=== PATIENT | male | born 1955 | race Caucasian/White ===

== ENCOUNTER 2023-01-19 23:23 | Emergency (ER) | payer OTHER, BC ==
--- OUTSIDE RECORDS SUMMARY | 2023-01-19 23:29 | XMS REPORT | Continuity of Care Document ---
:1955 Author Organization [facility] t Address [address] [place] [address] Care Team Providers Name Role Phone No MD, Pcp Primary Care Physician Unavailable JESÚS MARCELO Attending Clinician Unavailable Saravanan Jorge Attending Clinician Jesús Marcelo Attending Clinician Payers Payer Name Policy Type Policy Number Effective Date Expiration Date Lori KUMAR O [id number] 2018 00:00:00 Problems Condition Condition Condition Status Onset Resolution Last Treating Co mments Source Name Details Category Date Date Treatment Clinician Date I70.209 I70.209 Diagnosis Active 2022-11-29 Memoria I73.9 I73.9 8-11 10:15:00 l I77.9 I77.9 00:00: Mcdaniel Active 00 11/12/[address] [facility] I77.9 I77.9 Diagnosis Active 2022-11-15 Mem oria I73.9 I73.9 10-14 11:12:00 l Active 00:00: Shakir 10/14/[address] [facility] 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 Active [place] (periphera (periphera 10-08 He alth l arterial l arterial 00:00: occlusive occlusive 00 disease) disease) Paresthesi Paresthes Problem Active 2022-12-27 Memoria a ia 12:19:15 l (finding) (finding) Herm julian Active Problem 12/27/2022 [facility] Peripheral Periphera Problem Active 2022-12-27 Memoria nerve l nerve 12:19:15 l disease disease Shakir (disorder) (disorder) Active Problem 12/27/2022 [facility] Foot pain Foot pain Problem Active 2022-12-27 Memoria (finding) (finding) 12:19:15 l Active Shakir Problem 12/27/2022 [facility] [place] Lumbar Lumbar Problem Active 2022-12-27 [facility] radiculopa radiculopa 12:19:15 l thy thy Shakir (disorder) (disorder) Active Problem 12/27/2022 [facility] [place] Intermitte Intermitt Problem Active 2022-12-27 Memoria nt ent 12:19:15 l claudicati claudicati He rmann on on (disorder) (disorder) Active Problem 12/27/2022 [facility] Neurology [place] Peripheral Periphera Problem Active 2022-12-27 Memoria vascular l vascular 12:19:15 l disease disease Shakir (disorder) (disorder) Active Problem 12/27/2022 [facility] [place] Hyperlipid Hyperlipi Problem Active 2022-12-27 Memoria emia demia 12:19:15 l (disorder) (disorder) He rmann Active Problem 12/27/2022 [facility] [place] Anxiety Anxiety Problem Active 2022-12-27 Me morilamonte (finding) (finding) 12:19:15 l Active Shakir Problem 12/27/2022 [facility] 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 Active Problem 12/27/2022 [facility] M79.671 - M79.671 - Diagnosis Active 2022-09-09 Memoria PAIN IN PAIN IN 11:25:00 l RIGHT FOOT RIGHT FOOT He rmann Active OPID [place] Allergies, Adverse Reactions, Alerts Allergy Allergy Status Severity Reaction(s) Onset Inactive Treating Comm ents Source Name Type Date Date Clinician No Known No Known Active Memori a Medicati Medicati l on on Shakir Allergie Allergie s s Social History Social Habit Start Date Stop Date Quantity Comments Source History of tobacco Cigarette [facility] Sexual orientation [facility] History of Social 2022-12-14 2022-12-14 [facility] function 00:00:00 00:00:00 Tobacco use and 2022-10-08 2022-10-08 Smokeless tobacco [facility] exposure 00:00:00 00:00:00 non-user Sex Ass[birth year] At [birth year] [facility] 00:00:00 00:00:00 Smoking Status Start Date Stop Date Source Tobacco smoking status 2022-11-29 16:34:48 Memor iapete Mcdaniel Medications Ordered Filled Start Stop Current Ordering Indication Dosage Frequency Signature Comments Components Source Medication Medication Date Date Medication? Clinician (SIG) Name Name HYDROcodone Yes 1 tab, PO, Memoria -ibuprofen 8-28 Q4H, PRN l 7.5 mg-200 23:16: for pain, He rmann mg oral 00 X 5 day, # tablet 30 tab, 0 Refill(s), Pharmacy: [facility] #[id number], 172.72, cm, 11/22/22 13:27:00 CDT, Height, 68.8, kg, 11/22/22 13:27:00 CDT, Weight atorvastati Yes 20 mg = 1 M emoria n 20 mg 8-21 tab, PO, l oral tablet 18:52: Bedtime, # Shakir 00 30 tab, 0 Refill(s) clopidogrel 0 Yes 75 mg = 1 M emoria 75 mg oral 8-21 tab, PO, l tablet 18:52: Daily, # Shakir 00 30 tab, 0 Refill(s) ALPRAZOLam 0 Yes 1 mg = 1 Mem oria 1 mg oral 8-21 tab, PO, l tablet 18:52: TID, PRN Mcdaniel 00 Anxiety, 0 Refill(s) Plavix 75 0 Yes 75 mg = 1 Mem oria mg oral 7-17 tab, PO, l tablet 18:53: Daily, # Shakir 00 90 tab, 3 Refill(s), Pharmacy: [facility] #[id number], 172.72, cm, 10/18/22 9:47:00 CDT, Height, 70.455, kg, 10/18/22 9:47:00 CDT, Weight aspirin 0 Yes 325 mg, Memoria 7-17 PO, Daily, l 15:20: 0 Shakir 00 Refill(s) Xanax 0 Yes See Memoria 7-17 Instructio l 14:48: ns, PRN Mcdaniel 00 Agitation, PO, 0 Refill(s) ASPIRIN 81 0 Yes Take by [place] PO 7-07 mouth. Health 16:13: 38 ASPIRIN 81 2022-0 Yes Take by UT PO 7-07 mouth. Health 16:13: 38 ASPIRIN 81 2022-0 Yes Take by UT PO 7-07 mouth. Health 16:13: 38 ASPIRIN 81 0 Yes Take by UT PO 7-07 mouth. Health 16:13: 38 ALPRAZolam 0 Yes UT (Xanax) 1 7-06 Health MG tablet 00:00: 00 ALPRAZolam 0 Yes UT (Xanax) 1 7-06 Health MG tablet 00:00: 00 ALPRAZolam 2022-0 Yes UT (Xanax) 1 7-06 Health MG tablet 00:00: 00 ALPRAZolam 2022-0 Yes UT (Xanax) 1 7-06 Health MG tablet 00:00: 00 Lipitor 20 Yes 20 mg = 1 Me moria mg oral 6-22 tab, PO, l tablet 14:37: Bedtime, # Heidi nn 00 30 tab, 2 Refill(s), [id number], 175.26, cm, 09/23/22 9:02:00 CDT, Height, 73.409, kg, 09/23/22 9:02:00 CDT, Weight imipramine Yes 10 mg = 1 Me moria 10 mg oral 2-09 tab, PO, l tablet 21:56: Bedtime, # Heidi nn 00 30 tab, 3 Refill(s), [id number], 73.182, kg, 05/13/22 15:44:00 [employer]ESS[employer]CE[employer], Weight duloxetine 2019-04 Yes 30 mg = 1 Me moria 30 MG 2-07 cap, PO, l Enteric 17:26: Daily, # Sundeep n Coated 00 90 cap, 1 Capsule Refill(s), [Cymbalta] Pharmacy: [facility] #[id number], 172.72, cm, 03/10/20 11:04:00 [employer]CE[employer], Height, 69.091, kg, 03/10/20 11:04:00 PROFESS[employer]CE[employer], Weight gabapentin No 300 mg = 1 M emoria 300 MG Oral 4-14 cap, PO, l Capsule 16:12: TID, 0 Shakir 00 Refill(s) Vital Signs Vital Name Observation Time Observation Value Comments Source Height 2022-12-24 14:56:00 5 [ft_i] [facility] Shakir Weight 2022-12-24 14:56:00 [facility] Mcdaniel BMI Calculated 2022-12-24 14:56:00 Memori al Mcdaniel Systolic (mm Hg) 2022-12-24 14:56:00 Juan rial Shakir Diastolic (mm Hg) 2022-12-24 14:56:00 Mem orial Mcdaniel Heart Rate 2022-12-24 14:56:00 [facility] Shakir Systolic (mm Hg) 2022-11-30 01:25:00 Juan rial Shakir Diastolic (mm Hg) 2022-11-30 01:25:00 Mem orial Shakir Heart Rate 2022-11-29 21:30:00 [facility] Mcdaniel Height 2022-11-22 18:27:00 5 [ft_i] [facility] Shakir Weight 2022-11-22 18:27:00 [facility] Mcdaniel BMI Calculated 2022-11-22 18:27:00 Memori al Mcdaniel Systolic (mm Hg) 2022-11-12 14:59:00 Juan rial Shakir Diastolic (mm Hg) 2022-11-12 14:59:00 Mem orial Shakir Heart Rate 2022-11-12 14:59:00 [facility] Mcdaniel Height 2022-11-12 14:59:00 5 [ft_i] [facility] Shakir Weight 2022-11-12 14:59:00 [facility] Mcdaniel BMI Calculated 2022-11-12 14:59:00 Memori al Shakir Systolic (mm Hg) 2022-10-18 21:00:00 Juan rial Mcdaniel Diastolic (mm Hg) 2022-10-18 21:00:00 Mem orial Mcdaniel Heart Rate 2022-10-18 15:42:00 [facility] Shakir Height 2022-10-18 14:47:00 5 [ft_i] [facility] Shakir Weight 2022-10-18 14:47:00 [facility] Mcdaniel BMI Calculated 2022-10-18 14:47:00 Memori al Mcdaniel Systolic (mm Hg) 2022-09-23 13:44:00 Juan rial Shakir Diastolic (mm Hg) 2022-09-23 13:44:00 Mem orial Shakir Heart Rate 2022-09-23 13:44:00 [facility] Mcdaniel Height 2022-09-23 13:44:00 5 [ft_i] [facility] Shakir Weight 2022-09-23 13:44:00 [facility] Shakir BMI Calculated 2022-09-23 13:44:00 Memori al Mcdaniel Systolic (mm Hg) 2022-08-31 20:45:00 Juan rial Mcdaniel Diastolic (mm Hg) 2022-08-31 20:45:00 Mem orial Mcdaniel Heart Rate 2022-08-31 20:45:00 [facility] Shakir Height 2022-08-31 20:45:00 5 [ft_i] [facility] Shakir Weight 2022-08-31 20:45:00 [facility] Mcdaniel BMI Calculated 2022-08-31 20:45:00 Memori al Shakir Systolic (mm Hg) 2022-08-27 18:43:00 Juan rial Mcdaniel Diastolic (mm Hg) 2022-08-27 18:43:00 Mem orial Mcdaniel Heart Rate 2022-08-27 18:43:00 [facility] Shakir Height 2022-08-27 18:43:00 5 [ft_i] [facility] Mcdaniel Weight 2022-08-27 18:43:00 [facility] Mcdaniel BMI Calculated 2022-08-27 18:43:00 Memori al Mcdaniel Systolic (mm Hg) 2022-05-13 21:22:00 Juan rial Mcdaniel Diastolic (mm Hg) 2022-05-13 21:22:00 Mem orial Shakir Heart Rate 2022-05-13 21:22:00 [facility] Mcdaniel Weight 2022-05-13 21:22:00 [facility] Shakir Systolic (mm Hg) 2020-03-10 17:04:00 Juan rial Mcdaniel Diastolic (mm Hg) 2020-03-10 17:04:00 Charley Videsann Heart Rate 2020-03-10 17:04:00 Niki Mcdaniel Respitory Rate 2020-03-10 17:04:00 Belen Sinclair Height 2020-03-10 17:04:00 172.72 cm Niki Schilling Weight 2020-03-10 17:04:00 Niki Videsann BMI Calculated 2020-03-10 17:04:00 Charleydoug crocker Shakir Procedures Procedure Date / Time Performed Performing Clinician [facility] e Cervical laminectomy [facility] rmann Stent [facility] Mcdaniel placement<sup>1</sup> Lower back surgery [facility] Herm julian Angioplasty of artery of [facility] l Shakir lower extremity Encounters Start End Encounter Admission Attending Care Care Encounter Source Date/Time Date/Time Type Type Clinicians Facility Department ID 2022-10-20 Outpatient [facility] [id number] [place] 13:09:09 [id number] [facility] 2022-10-14 Outpatient [facility] [id number] [place] 12:24:04 [id number] [facility] 2022-10-11 Outpatient [facility] [id number] [place] 08:06:19 [id number] [facility] 2022-10-08 Outpatient [facility] [id number] [place] 09:55:12 [id number] [facility] 2022-10-06 Outpatient [facility] [id number] [place] 14:41:02 [id number] [facility] 2022-09-28 Outpatient [facility] [id number] [place] 13:27:58 [id number] [facility] 2022-09-24 Outpatient [facility] [id number] [place] 07:24:47 [id number] [facility] 2022-09-22 Outpatient [facility] [id number] 09:50:35 [id number] [facility] 2022-09-21 Outpatient [facility] [id number] [place] 13:45:35 [id number] [facility] 2022-09-13 Outpatient [facility] [id number] [place] 14:42:16 [id number] [facility] 2023-03-15 2023-03-15 Outpatient REKHA REKHA [id number] Memoria 10:30:00 10:30:00 14 l Shakir 2023-01-18 2023-01-[address] [facility] [id number] 07:45:00 07:45:[address] [facility] [id number] Health [place] 1 [id number] 2023-01-10 2023-01-10 Outpatient [facility] [id number] [place] 10:30:00 12:13:53 Health 2023-01-10 2023-01-10 Outpatient [facility] [id number] [place] 10:00:00 12:13:29 [facility] 2022-12-24 2022-12-25 Outpatient MHIE MNA [id number] Memoria 14:45:00 04:59:59 Neurology 13 l Maribell Schilling 2022-12-24 2022-12-24 Outpatient AKIRA JorgeSCHER MHMISCHER [id number] 09:45:00 23:59:59 Saravanan 13 Ramon 2022-12-24 2022-12-24 Outpatient MHIE MHIE [id number] Memoria 09:45:00 09:45:00 13 pete Schilling 2022-12-14 2022-12-[address] [facility] [id number] [place] 10:45:00 10:45:00 Visit [facility] [id number] [facility] [place] 1 [id number] 2022-11-29 2022-11-30 Day MHIE [facility] [id number] Memoria 15:14:00 01:38:00 Surgery Mcdaniel 01 [facility] 2022-11-29 2022-11-29 Outpatient NICK Marcelo SE [id number] 10:14:00 20:38:00 Jesús Rodrick Asael 2022-11-12 2022-11-13 Outpatient MHIE MNA [id number] Memoria 15:15:00 04:59:59 Neurology 12 pete Schilling 2022-11-12 2022-11-12 Outpatient AKIRA JorgeSCHPRUDENCE MHMISCHER [id number] 10:15:00 23:59:59 Saravanan 12 Ramon 2022-11-12 2022-11-12 Outpatient MHIE MHIE [id number] Memoria 10:15:00 10:15:00 12 pete Schilling 2022-11-05 2022-11-05 Outpatient DAVIAN, [facility] [id number] [place] 10:45:00 10:45:00 [facility] 2022-11-02 2022-11-[address] [facility] [id number] [place] 11:15:00 13:02:16 Visit Jesús [facility] [id number] He alth [place] 1 [id number] 2022-10-18 2022-10-18 Day REKHA [facility] [id number] Memoria 14:17:00 21:50:00 Surgery Mcdaniel 00 l [facility] 2022-10-18 2022-10-[address] [facility] [id number] 09:17:00 16:50:00 Jesús Newsome Alvo 2022-10-18 2022-10-18 [facility] [id number] [place] 12:30:00 12:30:00 [facility] 2022-10-08 2022-10-08 Office Davian DENITA [id number] [place] 10:30:00 14:15:21 Visit Jesús [facility] [id number] H ealth MULTI [id number] [facility] [id number] [facility] 5 2022-09-23 2022-09-24 Outpatient MHIE MNA [id number] Memoria 14:00:00 04:59:59 Neurology 11 l Maribell Schilling 2022-09-23 2022-09-23 Outpatient FILEMON Jorge [id number] 09:00:00 23:59:59 Saravanan 11 Ramon 2022-09-23 2022-09-23 Outpatient MHIE IE [id number] Memoria 09:00:00 09:00:00 11 l Shakir 2022-09-09 2022-09-10 Outpt Diag MHREKHA [facility] [id number] Memoria 16:14:00 04:59:00 Services Outpatient 00 l [facility] Mcdaniel [place] 2022-09-09 2022-09-09 Outpatient BRIGITTE Jorge Anthony [id number] 11:14:00 23:59:00 Saravanan 00 Ramon 2022-08-31 2022-09-01 Outpatient MHIE MNA [id number] Memoria 20:45:00 04:59:59 Neurology 10 pete Schilling 2022-08-31 2022-08-31 Outpatient NADEEN JorgeMISCHER MHMISCHER [id number] 15:45:00 23:59:59 Saravanan 10 Ramon 2022-08-31 2022-08-31 Outpatient MHIE MHIE [id number] Memoria 15:45:00 15:45:00 10 pete Schilling 2022-08-27 2022-08-28 Outpatient MHIE MNA [id number] Memoria 18:45:00 04:59:59 Neurology 09 pete Schilling 2022-08-27 2022-08-27 Outpatient Luisito MHMISCHER MHMISCHER [id number] 13:45:00 23:59:59 Saravanan 09 Ramon 2022-08-27 2022-08-27 Outpatient MHIE MHIE [id number] Memoria 13:45:00 13:45:00 09 pete Schilling 2022-05-13 2022-05-14 Outpatient MHIE MNA [id number] Memoria 21:30:00 05:59:59 Neurology 08 pete Schilling 2022-05-13 2022-05-13 Outpatient Luisito MHMISCHER MHMISCHER [id number] 15:30:00 23:59:59 Saravanan 08 Ramon 2022-05-13 2022-05-13 Outpatient MHIE MHIE [id number] Memoria 15:30:00 15:30:00 08 pete Schilling 2020-09-09 2020-09-09 Ambulatory nullFlavo MNA [id number] Memoria 14:15:00 14:15:00 Pre-Reg r Neurology 07 l Maribell Videsann 2020-09-09 2020-09-09 Outpatient MHIE MHIE [id number] Memoria 09:15:00 09:15:00 07 pete Schilling 2020-09-09 2020-09-09 Outpatient NADEEN JorgeMISCHER MHMISCHER [id number] 09:15:00 09:15:00 Saravanan 07 Ramon 2020-03-10 2020-03-11 Outpatient nullFlavo MNA [id number] Memoria 17:00:00 05:59:59 r Neurology 06 l Maribell Schilling 2020-03-10 2020-03-10 Outpatient Luisito, MHMISCHER MHMISCHER [id number] 11:00:00 23:59:59 Saravanan 06 Ramon 2020-03-10 2020-03-10 Outpatient MHIE MHIE [id number] Memoria 11:00:00 11:00:00 06 pete Shakir 2019-10-16 2019-10-16 Ambulatory nullFlavo MNA [id number] Memoria 15:30:00 15:30:00 Pre-Reg r Neurology 05 l Mariblel Schilling 2019-10-16 2019-10-16 Ambulatory nullFlavo MNA [id number] Memoria 15:30:00 15:30:00 Pre-Reg r Neurology 04 l [place] Mcdaniel 2019-10-16 2019-10-16 Outpatient MHIE MHIE [id number] Memoria 10:30:00 10:30:00 04 pete Shakir 2019-10-16 2019-10-16 Outpatient MHIE MHIE [id number] Memoria 10:30:00 10:30:00 05 pete Mcdaniel 2019-10-16 2019-10-16 Outpatient Luisito, MHMISCHER MHMISCHER [id number] 10:30:00 10:30:00 Saravanan 05 Ramon 2019-10-16 2019-10-16 Outpatient Luisito, MHMISCHER MHMISCHER [id number] 10:30:00 10:30:00 Saravanan 04 Ramon 2019-07-17 2019-07-18 Outpatient nullFlavo MNA [id number] Memoria 16:00:00 04:59:59 r Neurology 03 l Maribell Mcdaniel 2019-07-17 2019-07-17 Outpatient Luisito, MHMISCHER MHMISCHER [id number] 11:00:00 23:59:59 Saravanan 03 Ramon 2019-07-17 2019-07-17 Outpatient MHIE MHIE [id number] Memoria 11:00:00 11:00:00 03 l Mcdaniel 2019-05-30 2019-05-30 Ambulatory nullFlavo MNA [id number] Memoria 15:15:00 15:15:00 Pre-Reg r Neurology 02 l [place] Shakir 2019-05-30 2019-05-30 Outpatient MHIE MHIE [id number] Memoria 09:15:00 09:15:00 02 l Shakir 2019-05-30 2019-05-30 Outpatient FILEMON JorgeSCHER [id number] 09:15:00 09:15:00 Saravanan 02 Ramon 2019-04-13 2019-04-14 Outpatient nullFlavo MNA [id number] Memoria 20:15:00 05:59:59 r Neurology 01 l Maribell Schilling 2019-04-13 2019-04-13 Outpatient AKIRA JorgeSCHER AKIRASCHER [id number] 14:15:00 23:59:59 Saravanan 01 Ramon 2019-04-13 2019-04-13 Outpatient MHIE MHIE [id number] Memoria 14:15:00 14:15:00 01 pete Schilling 2019-01-26 2019-01-27 Outpatient nullFlavo MNLamonte [id number] Memoria 20:30:00 04:59:59 r Neurology 00 l Maribell Schilling 2019-01-26 2019-01-26 Outpatient FILEMON JorgeSCHER [id number] 15:30:00 23:59:59 Saravanan 00 Ramon 2019-01-26 2019-01-26 Outpatient MHIE NADEENIE [id number] Memoria 15:30:00 15:30:00 00 pete Shakir Results Test Description Test Time Test Comments Results Result Comments Source RADRPT 2022-11-22 19:21:08 Test Item Value Reference Range Interpretation Comme nts RADRPT (test code = RADRPT) PROCEDURE INFORMATION: Exam: XR Chest Exam date and time: 11/22/2022 1:32 PM Age: 66 years old Clinical indication: Pre-operative exam; Cardiovascular screening and respiratory screening exam; Additional info: Coughing/preoperative TECHNIQUE: Imaging protocol: Radiologic exam of the chest. Views: 2 views. COMPARISON: No relevant prior studies available. FINDINGS: Lungs: No focal consolidations or acute infiltrates. Normal lung volumes. Pleural spaces: Unremarkable. No pleural effusion. No pneumothorax. Heart/Mediastinum: Unremarkable. No cardiomegaly. Bones/joints: Unremarkable. IMPRESSION: No acute findings. Amando Diaz MD On 11/22/2022 14:19:50; [id number] [facility] [id number] 18:52:00 Test Item Value Reference Range Interpretation Comments ABO/Rh (test code = ABO/Rh) A POS [facility] [employer] [facility] [id number] 18:52:00 Test Item Value Reference Range Interpretation Comments Antibody Scrn (test Negative (11/22/22 1:52 code = Antibody Scrn) PM) [id number] 18:52:00 Test Item Value Reference Range Interpretation Comments Glucose Lvl (test code = Glucose Lvl) 86 70-99 [facility]71[facility]07 18:52:00 Test Item Value Reference Range Interpretation Comments BUN (test code = BUN) 8 7-22 [id number] 18:52:00 Test Item Value Reference Range Interpretation Comments Creatinine Lvl (test code = Creatinine 0.94 0.50-1.40 Lvl) [facility]ukhqhdLUVCBJZDQ9061-19-07 18:52:00 Test Item Value Reference Range Interpretation Comments Sodium Lvl (test code = Sodium Lvl) 138 135-145 [facility]TiwrmtxRZJJRSBRM0093-12-59 18:52:00 Test Item Value Reference Range Interpretation Comments Potassium Lvl (test code = Potassium 3.9 3.5-5.1 Lvl) [facility]QvbpzyaFXBEGUEZO9727-16-09 18:52:00 Test Item Value Reference Range Interpretation Comments Chloride Lvl (test code = Chloride Lvl) 104 95-109 [facility] AllenYetooydJNXMHKYUO9679-23-15 18:52:00 Test Item Value Reference Range Interpretation Comments CO2 (test code = CO2) 27 24-32 [facility] [id number] 18:52:00 Test Item Value Reference Range Interpretation Comments Calcium Lvl (test code = Calcium Lvl) 9.0 8.5-10.5 [facility] AllenHbwrwtuPTTFFCTFZ8389-26-24 18:52:00 Test Item Value Reference Range Interpretation Comments AGAP (test code = AGAP) 10.9 10.0-20.0 [facility] [id number] 18:52:00 Test Item Value Reference Range Interpretation Comments eGFR (test code = eGFR) 90 [facility]in[facility]fFTFCGUOPUB7915[facility]-53 18:52:00 Test Item Value Reference Range Interpretation Comments Segs (test code = Segs) 68.4 45.0-75.0 [place] [address]-08-21 18:52:00 Test Item Value Reference Range Interpretation Comments Lymphocytes (test code = Lymphocytes) 21.5 20.0-40.0 [place] [address]-08-21 18:52:00 Test Item Value Reference Range Interpretation Comments Monocytes (test code = Monocytes) 7.5 2.0-12.0 [place] [address]-08-21 18:52:00 Test Item Value Reference Range Interpretation Comments Eosinophils (test code = Eosinophils) 1.3 <=4.0 [place] [address]-08-21 18:52:00 Test Item Value Reference Range Interpretation Comments Basophils (test code = Basophils) 1.3 <=1.0 [place] [address]-08-21 18:52:00 Test Item Value Reference Range Interpretation Comments Neutrophils # (test code = Neutrophils 4.8 1.5-8.1 #) [place] [address]-08-21 18:52:00 Test Item Value Reference Range Interpretation Comments Lymphocytes # (test code = Lymphocytes 1.5 1.0-5.5 #) [place] [address]-08-21 18:52:00 Test Item Value Reference Range Interpretation Comments Monocytes # (test code = Monocytes #) 0.5 <=0.8 [place] [address]-08-21 18:52:00 Test Item Value Reference Range Interpretation Comments Eosinophils # (test code = Eosinophils 0.1 <=0.5 #) [place] [address]-08-21 18:52:00 Test Item Value Reference Range Interpretation Comments Basophils # (test code = Basophils #) 0.1 <=0.2 [place] [address]-08-21 18:52:00 Test Item Value Reference Range Interpretation Comments WBC (test code = WBC) 7.1 3.7-10.4 [place] [address]-08-21 18:52:00 Test Item Value Reference Range Interpretation Comments RBC (test code = RBC) 4.58 4.70-6.10 [place] [address]-08-21 18:52:00 Test Item Value Reference Range Interpretation Comments Hgb (test code = Hgb) 15.3 14.0-18.0 [place] [address]-08-21 18:52:00 Test Item Value Reference Range Interpretation Comments Hct (test code = Hct) 44.6 42.0-54.0 [facility] SouthYwutjucFTCLCHJHQN4407-55-57 18:52:00 Test Item Value Reference Range Interpretation Comments MCV (test code = MCV) 97.4 80.0-94.0 [facility] SouthQnkyepjWXXJWSYRZF0284-39-36 18:52:00 Test Item Value Reference Range Interpretation Comments MCH (test code = MCH) 33.3 pg 27.0-31.0 [facility] [id number] 18:52:00 Test Item Value Reference Range Interpretation Comments MCHC (test code = MCHC) 34.2 32.0-36.0 [facility] SouthBrbaxpgYIJAPOLFWJ9196-02-72 18:52:00 Test Item Value Reference Range Interpretation Comments RDW (test code = RDW) 13.8 11.5-14.5 [facility] [id number] 18:52:00 Test Item Value Reference Range Interpretation Comments Platelet (test code = Platelet) 182 133-450 [facility] SouthCmyelnkMFZVSQTVYL2950-97-30 18:52:00 Test Item Value Reference Range Interpretation Comments MPV (test code = MPV) 8.7 7.4-10.4 [facility] [id number] 18:52:00 Test Item Value Reference Range Interpretation Comments PT (test code = PT) 12.9 s 12.0-14.7 [facility] SouthEqtwkotESERRPLIZE2300-96-62 18:52:00 Test Item Value Reference Range Interpretation Comments INR (test code = INR) 0.97 1 0.85-1.17 [facility]WgwkcmiGDRFTIZJTS5579-56-46 18:52:00 Test Item Value Reference Range Interpretation Comments PTT (test code = PTT) 23.8 s 22.9-35.8 [facility]mtMAJGPPAFK3975-81-83 14:53:00 Test Item Value Reference Range Interpretation Comments BUN (test code = BUN) 10 - [facility]ZxewhhgTHKYETTCJ4943-25-91 14:53:00 Test Item Value Reference Range Interpretation Comments Creatinine Lvl (test code = Creatinine 0.97 0.50-1.40 Lvl) [facility] HospitalYzygwrvISAVZLJAH8371-04-38 14:53:00 Test Item Value Reference Range Interpretation Comments Sodium Lvl (test code = Sodium Lvl) 139 135-145 [facility] HospitalEifbrohYXYGCRNEK9538-63-68 14:53:00 Test Item Value Reference Range Interpretation Comments Potassium Lvl (test code = Potassium 6.1 3.5-5.1 Lvl) [facility] HospitalPfgpynkOKQPMYJUQ4282-54-01 14:53:00 Test Item Value Reference Range Interpretation Comments Chloride Lvl (test code = Chloride Lvl) 111 95-109 [facility] HospitalPsmlmbzRUVVOTYQD8637-18-67 14:53:00 Test Item Value Reference Range Interpretation Comments CO2 (test code = CO2) 24 24-32 [place] [id number] 14:53:00 Test Item Value Reference Range Interpretation Comments Calcium Lvl (test code = Calcium Lvl) 9.1 8.5-10.5 [place] 520293-07-17 14:53:00 Test Item Value Reference Range Interpretation Comments AGAP (test code = AGAP) 10.1 10.0-20.0 [facility] HospitalRjsuyauVIHXCPYGD1532-41-67 14:53:00 Test Item Value Reference Range Interpretation Comments eGFR (test code = eGFR) 87 [facility] HospitalYkdjmxaKYOMDBMLN8223-69-54 14:53:00 Test Item Value Reference Range Interpretation Comments Potassium Lvl (test code = Potassium 6.1 3.5-5.1 Lvl) [facility] HospitalNirweneTKZJPBINF3644-44-11 14:53:00 Test Item Value Reference Range Interpretation Comments Glucose Lvl (test code = Glucose Lvl) 100 70-99 [facility] SouthGquiyroWKUDIOQJQN0215-09-90 14:53:00 Test Item Value Reference Range Interpretation Comments WBC (test code = WBC) 7.9 3.7-10.4 [place] 210263-07-17 14:53:00 Test Item Value Reference Range Interpretation Comments RBC (test code = RBC) 4.66 4.70-6.10 [place] [address]-07-17 14:53:00 Test Item Value Reference Range Interpretation Comments Hgb (test code = Hgb) 15.3 14.0-18.0 [place] [address]-07-17 14:53:00 Test Item Value Reference Range Interpretation Comments Hct (test code = Hct) 46.0 42.0-54.0 [place] 210263-07-17 14:53:00 Test Item Value Reference Range Interpretation Comments MCV (test code = MCV) 98.7 80.0-94.0 [facility] SouthQyexwmmBVLWKYRWXC7102-27-72 14:53:00 Test Item Value Reference Range Interpretation Comments MCH (test code = MCH) 32.8 pg 27.0-31.0 [place] 210263-07-17 14:53:00 Test Item Value Reference Range Interpretation Comments MCHC (test code = MCHC) 33.3 32.0-36.0 [facility] SouthDesysjiUXMEGSULPX8541-98-18 14:53:00 Test Item Value Reference Range Interpretation Comments RDW (test code = RDW) 14.2 11.5-14.5 [facility] SouthDdzmakiOSLJRBFQJG2548-18-52 14:53:00 Test Item Value Reference Range Interpretation Comments Platelet (test code = Platelet) 197 133-450 [facility] SouthUgmwrpkGSZYDLMYOF6269-45-40 14:53:00 Test Item Value Reference Range Interpretation Comments MPV (test code = MPV) 9.5 7.4-10.4 [facility] SouthSoodryqGRTKZMUELQ6258-61-56 14:53:00 Test Item Value Reference Range Interpretation Comments PT (test code = PT) 12.6 s 12.0-14.7 [facility] SouthCrmtmllHEIJJBWITS4868-58-63 14:53:00 Test Item Value Reference Range Interpretation Comments INR (test code = INR) 0.94 1 0.85-1.17 [place] 210263-07-17 14:53:00 Test Item Value Reference Range Interpretation Comments PTT (test code = PTT) 26.0 s 22.9-35.8 [place] [address]-07-17 14:53:00 Test Item Value Reference Range Interpretation Comments Segs (test code = Segs) 67.7 45.0-75.0 [place] 210263-07-17 14:53:00 Test Item Value Reference Range Interpretation Comments Lymphocytes (test code = Lymphocytes) 20.9 20.0-40.0 [place] 210263-07-17 14:53:00 Test Item Value Reference Range Interpretation Comments Monocytes (test code = Monocytes) 9.0 2.0-12.0 [place] 210263-07-17 14:53:00 Test Item Value Reference Range Interpretation Comments Eosinophils (test code = Eosinophils) 1.3 <=4.0 [facility]PbtaqmhBMRJCMWLTN8133-34-77 14:53:00 Test Item Value Reference Range Interpretation Comments Basophils (test code = Basophils) 1.1 <=1.0 [facility] HospitalWpzracyTKFKINCMQT7874-09-88 14:53:00 Test Item Value Reference Range Interpretation Comments Neutrophils # (test code = Neutrophils 5.4 1.5-8.1 #) [facility] SouthOibcwpmFNZXQYTZEF5804-47-01 14:53:00 Test Item Value Reference Range Interpretation Comments Lymphocytes # (test code = Lymphocytes 1.7 1.0-5.5 #) [facility] SouthKqyanwzERQCGRFZTB2803-03-62 14:53:00 Test Item Value Reference Range Interpretation Comments Monocytes # (test code = Monocytes #) 0.7 <=0.8 [facility] SouthEfnavjzVGLNDSYXDN6900-63-39 14:53:00 Test Item Value Reference Range Interpretation Comments Eosinophils # (test code = Eosinophils 0.1 <=0.5 #) [facility] HospitalNnoyydfNDWSVRFUVP5906-69-86 14:53:00 Test Item Value Reference Range Interpretation Comments Basophils # (test code = Basophils #) 0.1 <=0.2 [facility] [id number] 14:53:00 Test Item Value Reference Range Interpretation Comments ABO/Rh (test code = ABO/Rh) A POS [facility] GeoGRAFI XSONLKR0996-01-73 14:53:00 Test Item Value Reference Range Interpretation Comments Antibody Scrn (test Negative (10/18/22 9:53 code = Antibody Scrn) AM) [facility] HospitalJyexhiySUNKOISJX5579-26-04 14:53:00 Test Item Value Reference Range Interpretation Comments Glucose Lvl (test code = Glucose Lvl) 100 70-99 [facility]KqhgpcoJLIQJJ8557-57-78 18:47:45 Test Item Value Reference Range Interpretation Comments RADRPT (test code EXAM: Spine lumbar flex/ext = RADRPT) 2 view DXHISTORY: - m54.16COMPARISON: None availableLateral neutral and extension views of the lumbar spineFINDINGS:There is normal AP alignment. No movement with flexion or extension. There is facet arthropathy in the lower lumbar spine. Small endplate osteophytes at L3. No vertebral body height loss.IMPRESSION:Degenerativ e change as above. [facility] CenterGrnfjawDHOLMT8221-72-45 06:02:42 Test Item Value Reference Range Interpretation Comments RADRPT (test code = EXAM: Ankle 2 views DX, RADRPT) Right, Foot 2 views DX, RightDATE: 09/09/2022 11:53.INDICATION: - [id number].COMPARISON: None available.TECHNIQUE: 2 views of the right ankle. 2 views of the right footFINDINGS:* No acute fracture or malalignment is identified.* Ankle mortise appears intact. Lisfranc interval is maintained. 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 [facility] CenterCkywyjhWBTTCW3940-87-71 06:02:42 Test Item Value Reference Range Interpretation Comments RADRPT (test code = EXAM: Ankle 2 views DX, RADRPT) Right, Foot 2 views DX, RightDATE: 09/09/2022 11:53.INDICATION: - [id number].COMPARISON: None available.TECHNIQUE: 2 views of the right ankle. 2 views of the right footFINDINGS:* No acute fracture or malalignment is identified.* Ankle mortise appears intact. Lisfranc interval is maintained. 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 [facility] CenterZsxwgurSGABAS4114-40-65 20:35:36 Test Item Value Reference Range Interpretation Comments RADRPT (test code STUDY: Ext Lower Arterial = RADRPT) Doppler bilat USCOMPARISON: NoneFINDINGS: Grayscale and doppler ultrasonographic evaluation of the arteries was performed.Right lower extremity:Doppler waveforms are biphasic in the right common femoral, but the proximal SFA is chronically occluded with monophasic waveforms in the mid to distal SFA and blunted monophasic waveforms throughout the lower extremities in the popliteal and tibial vessels. Velocities are substantially diminished in the distal vasculature.Left lower extremity:Doppler waveforms are biphasic in the left common femoral, monophasic in the proximal superficial femoral, blunted monophasic in the distal superficial femoral/popliteal artery and blunted monophasic in the posterior tibial anterior tibial and dorsalis pedis vessels. 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 Niki Schilling
--- NOTE | 2023-01-20 00:07 | EDPHYS ---
Physician Documentation [facility] Name: Rosa Peña Age: 67 yrs Sex: Male : 1955 Arrival Date: 01/19/2023 Time: 23:23 Bed 14 Private MD: Cristopher Rodriguez T ED Physician Sky Dhillon HPI: 01/20 00:07 This 67 yrs old Male presents to ER via Ambulatory with complaints of Wound ec2 Check. 00:07 Patient arrives today due to concern for bleeding from his wound. Patient states that ec2 he had 2 cancerous lesions removed from the right anterior forearm, subsequently went to change his dressing, was cleaning the wound and subsequently had significant bleeding and had issues controlling the blood. Patient is on Plavix for blood thinners. Patient reports no fevers or chills, no systemic symptoms. Patient applied compression and dressing at home.. Historical: - Allergies: 01/19 23:31 No Known Allergies; ap3 - Home Meds: 23:31 clopidogrel 75 mg oral tablet [Active]; ap3 - PSHx: 23:31 femoral stent; ap3 - Immunization history:: Client reports receiving the 2nd dose of the Covid vaccine. - Social history:: Smoking status: . ROS: 01/20 00:07 Constitutional: bleeding ec2 Exam: 00:07 Constitutional: GEN: NAD Head: atraumatic Eyes: EOMI Ears: External ears are ec2 normal. CV: regular rate LUNGS: no respiratory distress ABD: non-distended SKIN: 2 large skin wounds noted on the right forearm that are well-healing without any active bleeding. No evidence of infection MSK: no evidence of trauma NEURO: moves all extremities equally Vital Signs: 01/19 23:29 BP 132 / 77; Pulse 89; Resp 18; Temp 97.7; Pulse Ox 100% ; Weight 70.31 kg; ap3 MDM: 23:28 Patient medically screened. ec2 01/20 00:07 Data reviewed: vital signs. ED course: Patient arrives today for evaluation of bleeding ec2 from his wound. Examination remarkable for well-appearing nontoxic individual who is in no acute distress who has no active bleeding from his wounds and are well-healing and noninfectious appearing. I applied nonadherent dressing, will discharge patient home and have him follow-up with his primary care doctor. Return precautions given. . Administered Medications: No medications were administered Disposition Summary: 01/20/23 00:07 Discharge Ordered Notes: Location: Home ec2 Condition: Stable ec2 Diagnosis - Wound Evaluation ec2 Discharge Instructions: - Discharge Summary Sheet ec2 - Wound Care, Adult ec2 Forms: - Medication Reconciliation Form ec2 - Thank You Letter ec2 - Antibiotic Education ec2 - Prescription Opioid Use ec2 - Patient Portal Instructions ec2 - Leadership Thank You Letter ec2 Signatures: Ivett Ahuja RN RN ap3 Sky Dhillon MD MD ec2
--- NOTE | 2023-01-20 00:07 | ER ---
Nurse's Notes [facility] Name: Rosa Peña Age: 67 yrs Sex: Male : 1955 Arrival Date: 01/19/2023 Time: 23:23 Bed 14 Private MD: Cristopher Rodriguez T Diagnosis: Wound Evaluation Presentation: 01/19 23:29 Chief complaint: Patient states: he had some skin cancer removed Tuesday01/14/2023. ap3 patient was doing wound care this evening when one of the areas started bleeding. patient presents to the ED today for evaluation of wound. wounds are located on right lower extremity. bleeding is controlled at this time with dressing. Coronavirus screen: At this time, the client does not indicate any symptoms associated with coronavirus-19. Ebola Screen: No symptoms or risks identified at this time. Initial Sepsis Screen: Does the patient meet any 2 criteria? No. Patient's initial sepsis screen is negative. Does the patient have a suspected source of infection? No. Patient's initial sepsis screen is negative. Risk Assessment: Do you want to hurt yourself or someone else? Patient reports no desire to harm self or others. Onset of symptoms was January 19, 2023. 23:29 Method Of Arrival: Ambulatory ap3 23:29 Acuity: ERIC 4 ap3 Triage Assessment: 23:32 General: Appears in no apparent distress. Behavior is calm, cooperative, appropriate ap3 for age. Pain: Complains of pain in dorsal aspect of right forearm. Neuro: Level of Consciousness is awake, alert, obeys commands, Oriented to person, place, time, situation. Cardiovascular: Patient's skin is warm and dry. Respiratory: Airway is patent Respiratory effort is even, unlabored, Respiratory pattern is regular, symmetrical. Derm: Wound noted dorsal aspect of right forearm. Historical: - Allergies: 23:31 No Known Allergies; ap3 - Home Meds: 23:31 clopidogrel 75 mg oral tablet [Active]; ap3 - PSHx: 23:31 femoral stent; ap3 - Immunization history:: Client reports receiving the 2nd dose of the Covid vaccine. - Social history:: Smoking status: . Screenin:33 [facility] ED Fall Risk Assessment (Adult) History of falling in the last 3 months, ap3 including since admission No falls in past 3 months (0 pts). Abuse screen: Denies threats or abuse. Nutritional screening: No deficits noted. Tuberculosis screening: No symptoms or risk factors identified. Assessment: 01/20 00:00 General: Appears comfortable, Behavior is calm, cooperative. rv 00:00 Pain: Denies pain. Neuro: Level of Consciousness is awake, alert, obeys commands, rv Oriented to person, place, time, situation. Cardiovascular: Capillary refill < 3 seconds. Respiratory: Airway is patent Respiratory effort is even, unlabored. Derm: Wound noted right arm Other: BLEEDING CONTROLLED, APPLIED NON ADHERENT DRESSING AND DEAN WRAP. Vital Signs: 01/19 23:29 BP 132 / 77; Pulse 89; Resp 18; Temp 97.7; Pulse Ox 100% ; Weight 70.31 kg; ap3 ED Course: 23:25 Patient arrived in ED. mr 23:25 Cristopher Rodriguez MD is Private Physician. mr 23:28 Sky Dhillon MD is Attending Physician. ec2 23:31 Triage completed. ap3 23:33 Arm band placed on left wrist. ap3 01/20 00:05 Stanford Back RN is Primary Nurse. rv 00:13 Patient has correct armband on for positive identification. Provided Education on: rv WOUND CARE. Client placed on continuous cardiac and pulse oximetry monitoring. NIBP monitoring applied. 00:13 No provider procedures requiring assistance completed. Patient did not have IV access rv during this emergency room visit. Administered Medications: No medications were administered Medication: 00:13 VIS not applicable for this client. rv Outcome: 00:07 Discharge ordered by MD. ec2 00:13 Discharged to home ambulatory, rv 00:13 Condition: good 00:13 Discharge instructions given to patient, Instructed on discharge instructions, follow up and referral plans. Demonstrated understanding of instructions, follow-up care, 00:13 Patient left the ED. rv Signatures: Caryl Mcclellan, Reg Reg mr Ivett Ahuja RN RN ap3 Stanford Back, ELI RN rv Sky Dhillon MD MD ec2
[2023-01-20 02:09] VITALS: BP 132/77; TEMP 97.7; O2SAT 100
== END 2023-01-20 00:13 | disposition home or self-care (01) ==
LOC: ER 23:23
DX: Z48.01 Encounter for change or removal of surgical wound dressing (principal)
CPT/HCPCS: 99283